=== PATIENT | female | born 1940 | race Caucasian/White ===

== ENCOUNTER 2017-09-28 06:29 | Observation (INO) | payer OTHER ==
[~2017-09-28] VITALS: Ht 160 cm; Wt 73.9 kg
[2017-09-28 07:51] LABS: BASOPHIL % 1.3 % (0-2); PLATELET COUNT 184 x10^3mcL (130-400)
[2017-09-28 07:57] LABS: RED CELL DISTRIBUTION WIDTH 15.3 % (11.5-14.5)
[2017-09-28 08:13] LABS: CALCIUM 8.8 mg/dL (8.5-10.1); CARBON DIOXIDE 22.9 mmol/L (21-32); CHLORIDE SERUM 104 mmol/L (98-107); CREATININE SERUM 1.8 mg/dL (0.6-1.0); GLUCOSE SERUM 137 mg/dL (74-106); POTASSIUM SERUM 3.3 mmol/L (3.5-5.1); SODIUM SERUM 138 mmol/L (136-145)
[2017-09-28 08:17] LABS: ALKALINE PHOSPHATASE 53 U/L (46-116); ALT/SGPT 30 U/L (14-59); AST/SGOT 37 U/L (15-37); BILIRUBIN TOTAL 0.3 mg/dL (0.20-1.00); TOTAL PROTEIN, SERUM 8.1 g/dL (6.4-8.2)
[2017-09-28 09:08] LABS: microscopic required? YES; urine erythrocyte TRACE (NEGATIVE)
[2017-09-28] MEDS ORDERED: GOOD SENSE OMEP20 MG PO (11:02)
[2017-09-28] MEDS ORDERED: ATENOLOL50 MG PO (11:02)
[2017-09-28] MEDS ORDERED: LIPI10 PO (11:02)
[2017-09-28] MEDS ORDERED: LEVOTHYROXIN0.175 MG PO (11:03)
[2017-09-28] MEDS ORDERED: ALENDRONATE SOD70 M2 PO (11:03)
[2017-09-28] MEDS ORDERED: COLESTID1 GM PO (11:04)
[2017-09-28] MEDS ORDERED: DIAZEPAM5 MG PO (11:04)
[2017-09-28 13:12] VITALS: BP 140/75
[2017-09-28 13:30] LABS: MAGNESIUM 1.9 mg/dL (1.8-2.4); PHOSPHOROUS 3.4 mg/dL (2.5-4.9)
[2017-09-28 13:32] LABS: CHOLESTEROL/HDL RATIO 4.1
[2017-09-28 13:42] LABS: T3 TOTAL 0.31 ng/mL
[2017-09-28 13:43] LABS: FREE T4 0.25 ng/dL (0.76-1.46); FREE THYROXINE INDEX 0.2 ug/dL (1.4-4.5); T4(THYROXINE) 0.8 ug/dL (4.7-13.3)
[2017-09-28 13:54] LABS: AMPHETAMINE QUAL UR NONE DETECTED (NEG <=1000)
[2017-09-28 16:32] VITALS: BP 140/75
[2017-09-28 18:21] VITALS: BP 138/72
[2017-09-28 20:45] VITALS: BP 126/68
[2017-09-29 05:24] VITALS: BP 124/61
[2017-09-29 07:02] LABS: BASOPHIL % 0.5 % (0-2); PLATELET COUNT 254 x10^3mcL (130-400)
[2017-09-29 07:07] LABS: RED CELL DISTRIBUTION WIDTH 14.6 % (11.5-14.5)
[2017-09-29 07:27] LABS: CALCIUM 7.6 mg/dL (8.5-10.1); CARBON DIOXIDE 27.6 mmol/L (21-32); CHLORIDE SERUM 103 mmol/L (98-107); CREATININE SERUM 1.6 mg/dL (0.6-1.0); GLUCOSE SERUM 94 mg/dL (74-106); POTASSIUM SERUM 3.8 mmol/L (3.5-5.1); SODIUM SERUM 139 mmol/L (136-145)
[2017-09-29 09:23] VITALS: BP 136/74
[2017-09-29] MEDS ORDERED: KEFLEX500 M1 PO (09:52)
[2017-09-29] MEDS ORDERED: LAC PO (09:52)
[2017-09-29 11:20] VITALS: BP 136/74
== END 2017-09-29 13:13 | disposition home or self-care (01) | DRG 689 ==
LOC: ED 06:29 → DU 11:27
PROVIDERS: Emergency Medicine; ADMIT Family Medicine
DX: N39.0 Urinary tract infection, site not specified (principal); N17.0 Acute kidney failure with tubular necrosis; E87.2 Acidosis; E87.6 Hypokalemia; N13.30 Unspecified hydronephrosis; R73.03 Prediabetes; D17.9 Benign lipomatous neoplasm, unspecified; R91.1 Solitary pulmonary nodule; K57.90 Diverticulosis of intestine, part unspecified, without perforation or abscess without bleeding; E78.5 Hyperlipidemia, unspecified; E03.9 Hypothyroidism, unspecified; F41.9 Anxiety disorder, unspecified
CPT/HCPCS: 83880; 84439; G0378; J2405; J2543; J7030; J7040; Q0092

== ENCOUNTER 2019-03-02 13:45 | Observation (INO) | payer OTHER ==
[~2019-03-02] VITALS: Ht 160 cm; Wt 71.7 kg
[~2019-03-02 13:45] MED LIST: ALENDRONATE SOD70 M2 PO; ATENOLOL50 MG PO; COLESTID1 GM PO; DIAZEPAM5 MG PO; GOOD SENSE OMEP20 MG PO; KEFLEX500 M1 PO; LAC PO; LEVOTHYROXIN0.175 MG PO; LIPI10 PO
[2019-03-02 13:59] VITALS: Ht 160 cm; Wt 71.7 kg
--- NOTE | 2019-03-02 14:05 | NUR ---
PT BIB [facility] S/P NEAR SYNCOPE AT HOME ON TOILET PER FRENCH FOLDING MACHINE OPERATOR SHE LEANED AGAINST THE WALL TO PREVENT A FALL NO TRAUMA NOTED -LOC PER FRENCH FOLDING MACHINE OPERATOR PT WAS DX WITH UTI YESTERDAY BY HER PMD UPON ARRIVAL PT AAOX4 NO NEURO DEFICITS NOTED PT DENIES N/V AND/OR DIZZINESS. RESPS E/U SKIN PINK DRY AND WARM PT PLACED ON FULL VP PRODUCT MD POP AT BEDSIDE WARM BLANKET PROVIDED WINTER AT BEDSIDE
--- NOTE | 2019-03-02 14:08 | NUR ---
LAB AT BEDSIDE
[2019-03-02 14:28] LABS: BASOPHIL % 0.1 % (0-2); PLATELET COUNT 134 x10^3mcL (130-400)
[2019-03-02 14:45] LABS: ALBUMIN 3.6 g/dL (3.4-5.0); ALKALINE PHOSPHATASE 62 U/L (46-116); ALT/SGPT 29 U/L (14-59); CALCIUM 8.4 mg/dL (8.5-10.1); CARBON DIOXIDE 20.6 mmol/L (21-32); CREATININE SERUM 1.3 mg/dL (0.6-1.0); GLUCOSE SERUM 136 mg/dL (74-106); TOTAL PROTEIN, SERUM 7.9 g/dL (6.4-8.2)
[2019-03-02 14:58] LABS: AST/SGOT 26 U/L (15-37); BILIRUBIN TOTAL 0.6 mg/dL (0.20-1.00); CHLORIDE SERUM 104 mmol/L (98-107); POTASSIUM SERUM 4.4 mmol/L (3.5-5.1); SODIUM SERUM 136 mmol/L (136-145)
--- NOTE | 2019-03-02 15:44 | NUR ---
PT PLACED ON BED PAIN AND REMINDED TO PROVIDE URINE SPECIMEN
--- NOTE | 2019-03-02 15:52 | NUR ---
PT IN POSITION OF COMFORT RESPS E/U GRANDSON AT BEDSIDE
[2019-03-02 16:24] LABS: UA SPECIFIC GRAVITY 1.025 (1.005-1.035); microscopic required? YES; urine erythrocyte TRACE (NEGATIVE)
--- NOTE | 2019-03-02 16:46 | NUR ---
PT IN POSITION OF COMFORT RESPS E/U
[2019-03-02] MEDS ORDERED: NOR5 PO (17:25)
[2019-03-02] MEDS ORDERED: DIAZEPAM RECTA2.5 MG (17:25)
[2019-03-02] MEDS ORDERED: LOPERAMIDE HCL2 M1 PO (17:25)
[2019-03-02] MEDS ORDERED: COLESTID1 GM PO (17:26)
--- NOTE | 2019-03-02 17:28 | NUR ---
PT GIVEN FOOD TRAY.
--- NOTE | 2019-03-02 17:50 | NUR ---
PT IN POSITION OF COMFORT EATING IN BED WITH SON AT BEDSIDE RESPS E/U
--- NOTE | 2019-03-02 18:17 | NUR ---
RECEIVED REPORT FROM ELMER MILLAN IN ER.
--- NOTE | 2019-03-02 19:00 | NUR ---
[facility] ACCOMPANIED BY RN, TRANSPORTER, AND GRANDSON (MIMI YAN). PT A/A/O X 4, CALM, COOPERATIVE, [place]. PT WITH GENERALIZED WEAKNESS BUT ABLE TO AMBULATE CGA WITH SLOW, STEADY GAIT FROM GUERNEY TO BED. ON TELE # 32, NSR, HR 82, DENIES CHEST PAIN OR DISCOMFORT AT THIS TIME, STATES THAT SHE CANNOT LAY FLAT BECAUSE SHE GETS DIZZY. BUL/BLL CLEAR, CHEST RISING EVENLY, 2LNC, 94%, NO ACUTE RESPIRATORY DISTRESS NOTED. VOIDS FREELY BUT HAS FREQUENCY, LIKES TO USE THE BEDPAN. IV SITE RH 20G, CDI. ORIENTED PT AND GRANDSON TO ROOM, BED CONTROLS, CALL LIGHT SYSTEM. SIDE RAILS UP X 2, BED IN LOW POSITION. WILL ENDORSE TO [facility].
[2019-03-02 19:01] VITALS: BP 132/60
[2019-03-02 20:45] VITALS: BP 133/65
[2019-03-03 04:51] VITALS: BP 116/58
--- NOTE | 2019-03-03 06:08 | NUR ---
NO SIGNIFICANT CHANGES TO REPORT, PT COMPLIED WITH NURSING CARE THROUGHOUT THE SHIFT WITH NO ACUTE EVENTS OVERNIGHT. NO ACUTE DISTRESS OBSERVED AT THIS TIME, PT LAYING IN BED, BREATHING EVEN AND UNLABORED. COMFORT AND SAFETY MEASURES MAINTAINED, ALL NEEDS ASSESSED AND ATTENDED TO. CALL LIGHT WITHIN REACH. WILL CONTINUE TO MONITOR AND ENDORSE CARE TO DAY SHIFT NURSE
[2019-03-03 06:31] LABS: PLATELET COUNT 215 x10^3mcL (130-400); RED CELL DISTRIBUTION WIDTH 13.9 % (11.5-14.5)
[2019-03-03 06:47] LABS: CALCIUM 7.6 mg/dL (8.5-10.1); CARBON DIOXIDE 27.5 mmol/L (21-32); CHLORIDE SERUM 111 mmol/L (98-107); CREATININE SERUM 1.1 mg/dL (0.6-1.0); GLUCOSE SERUM 86 mg/dL (74-106); POTASSIUM SERUM 4.2 mmol/L (3.5-5.1); SODIUM SERUM 145 mmol/L (136-145)
[2019-03-03 07:06] LABS: BASOPHIL % 0 % (0-2)
--- NOTE | 2019-03-03 07:10 | NUR ---
RECEIVED PATIENT FROM SOCIETY REPORTER NURSE. PATIENT IS AWAKE, ALERT AND ORIENTED. MENTASTA BILATERALLY. TELE#32, SR, HR 77, DENIES CHEST PAIN AND PRESSURE. ON ROOM AIR, BREATHING EVEN AND UNLABORED. BEDPAN NOTED AT PATIENTS BEDSIDE, C/O URINARY FREQ. URINE SAMPLE COLLECTED AT THIS TIME FOR CX. ON ROOM AIR, BREATHING EVEN AND UNLABORED, DENIES SOB. IV NOTED TO RIGHT HAND, IVF IFNSUIGN WELL ORDERED, NO S/S ERYTHEMA AT SITE. CALL LIGHT WITHIN EASY REACH. SAFETY AND FALL PREC IN PLACE. WILL CONTINUE PLAN OF CARE.
[2019-03-03 09:55] VITALS: BP 155/74; BP 163/74
[2019-03-03 12:54] VITALS: BP 149/68
--- NOTE | 2019-03-03 12:56 | NUR ---
PATIENT RESTING IN BED WITH FAMILY AT THE BEDSIDE. DENIES HEADACHE AT THIS TIME. ECHO BEING COMPLETED. IVF IFNUSING WELL ORDERED. WILL CONTINUE TO MONITOR.
--- NOTE | 2019-03-03 13:45 | NUR ---
CALLED AND SPOKE TO AND VERIFIED IF HE WANTS TO RESUME PT HOME MEDICATION. PLS SEE CPOE ORDER OF HOME MEDS RESUMED EXCEPT HE HELD THE [facility]. I ASKED HIM REGARDING THE ADMISSION STATUS SINCE PT IS OBSERVATION AND HE SAYS PT IS POSSIBLY GONNA BE DISCHARGE LATER THIS PM AND IF PT WILL END UP STAYING IT'S OKAY TO CHANGE THE ADMIT STATUS TO INPATIENT. MAYRA RN ASSIGNED TO THIS PT MADE AWARE OF ABOVE.
--- NOTE | 2019-03-03 15:00 | NUR ---
PER DR RODRIGUEZ PATIENT IS CLEARED FOR DC. DR RODRIGUEZ TO NOTIFY DR VASQUEZ. CHARGE NURSE PEPE NOTIFIED.
[2019-03-03 15:43] VITALS: BP 149/68
[2019-03-03 16:40] VITALS: BP 117/52
--- NOTE | 2019-03-03 17:35 | NUR ---
DR VASQUEZ PAGED AT THIS TIME REGARDING PATIENTS DISCHARGE: ABX PRESCRIPTION? WILL FOLLOW UP.
--- NOTE | 2019-03-03 18:45 | NUR ---
DR VASQUEZ PAGED AT THIS TIME REGARDING PATIENTS DC MEDICATIONS. PATIENT RESTING EASY IN BED AT THIS TIME. PATIENT AND FAMILY EDUCATED ON PENDING CALL BACK FROM DOCTOR PRIOR TO DISCHARGE. VERBALIZE UNDERSTANDING. CALL LIGHT WITHIN EASY REACH. FALL PREC IN PLACE. WILL ENDORSE PATIENT CARE TO INSPECTOR HAIRSPRING TRUING NURSETUTU.
--- NOTE | 2019-03-03 19:00 | NUR ---
RECEIVED PT LAYING IN BED, NO ACUTE DISTRESS OBSERVED. DENIES PAIN OR DISCOMFORT AT THIS TIME. AA/OX4, ABLE TO MAKE NEEDS KNOWN, SPEECH CLEAR AND APPRORPIATE. NSR TO TELE #32, NO CP. PULSES PRESENT AND EQUAL THROUGHOUT, NO EDEMA. BREATHING ON RA, EVEN AND UNLABORED, NO SOB OR DYSPNEA, LUNGS CTA. ABD ROUND AND SOFT WITH ACTIVE BOWEL SOUNDS, DENIES N/V/D. VOIDS URINE, C/O FREQUENCY. AMBULATORY AND ABLE TO REPOSITION SELF IN BED. SKIN CDI. IV TO RH IN PLACE, DRY, PATENT, INTACT, AND INFUSING IVF WELL, NO PAIN, REDNESS OR SWELLING NOTED. COMFORT AND SAFETY MEASURES IN PLACE. ALL NEEDS ASSESSED AND ATTENDED TO. CALL LIGHT WITHIN REACH. WILL CONTINUE TO MONITOR
--- NOTE | 2019-03-03 19:57 | NUR ---
APPEALS NURSE PHYSICIAN PAGED AT THIS TIME TO REQUEST PRESCRIPTION FOR ANTIBIOTICS PRIOR TO PT'S D/C HOME. WILL ANTICIPATE CALL BACK
--- NOTE | 2019-03-03 20:00 | NUR ---
SPOKE TO DR. VASUQEZ OVER THE PHONE, PER DR. VASQUEZ PT DOES NOT NEED NEW PRESCRIPTION. PRIMARY NURSE TUTU MADE AWARE
--- NOTE | 2019-03-03 20:54 | NUR ---
PT D/C VIA WHEELCHAIR ACCOMPANIED BY JONH DICKINSON. GRANDSON TO DRIVE HER HOME. ALL PAPERWORKS SIGNED, TELE REMOVED. IV REMOVED WITH CATH INTACT, NO BLEEDING. ID BAND REMOVED. ALL BELONGINGS WITH PT. NO DISTRESS OBSERVED, PT STABLE.
== END 2019-03-03 20:57 | disposition home or self-care (01) | DRG 312 ==
LOC: ED 13:45 → DU 16:52
PROVIDERS: Emergency Medicine; ADMIT Internal Medicine
DX: I95.1 Orthostatic hypotension (principal); E87.2 Acidosis; N17.9 Acute kidney failure, unspecified; N39.0 Urinary tract infection, site not specified; R55 Syncope and collapse; I12.9 Hypertensive chronic kidney disease with stage 1 through stage 4 chronic kidney disease, or unspecified chronic kidney disease; N18.9 Chronic kidney disease, unspecified; E78.5 Hyperlipidemia, unspecified; E03.9 Hypothyroidism, unspecified; K58.9 Irritable bowel syndrome, unspecified; Z68.27 Body mass index [BMI] 27.0-27.9, adult
CPT/HCPCS: 87804; G0378; J0696; J1644; J7030; Q0092